=== PATIENT | female | born 1995 | race Two or more races ===

== ENCOUNTER 2018-03-22 10:33 | Emergency (ER) | payer OTHER ==
[~2018-03-22] VITALS: Ht 157.5 cm; Wt 51.3 kg
[~2018-03-22 10:33] MED LIST: BETAMETHASONE D15 G2 TOP; DOLOGESIC 500-1 EACH PO
== END 2018-03-22 12:32 | disposition home or self-care (01) ==
LOC: ER 10:33
DX: B37.3 Candidiasis of vulva and vagina (principal)

== ENCOUNTER → 2018-12-20 | Emergency (ER) | payer OTHER ==
[~2018-12-20] VITALS: Ht 152.4 cm; Wt 47.2 kg
== END | disposition left against medical advice (07) ==
LOC: ER 03:38
DX: Z53.20 Procedure and treatment not carried out because of patient's decision for unspecified reasons (principal)